=== PATIENT | male | born 1950 | race Caucasian/White ===

== ENCOUNTER → 2025-05-05 | Outpatient (CLI) | payer MEDICARE, BC | END | disposition home or self-care (01) | LOC: US 10:34 | PROVIDERS: ATTEND Surgery | DX: N50.3 Cyst of epididymis (principal); N50.82 Scrotal pain; N50.89 Other specified disorders of the male genital organs; G89.18 Other acute postprocedural pain | CPT/HCPCS: 76870; 93976 ==